=== PATIENT | female | born 1975 | race Caucasian/White ===

== ENCOUNTER → 2017-05-20 | Outpatient (CLI) | payer BC ==
--- NOTE | 2017-05-20 08:49 | US ---
EXAMINATION TYPE: US abdomen complete DATE OF EXAM: 05/20/2017 COMPARISON: NONE CLINICAL HISTORY: R10.11 Right Upper Quad Pain. Intermittent RUQ pain EXAM MEASUREMENTS: Liver Length: 18.2 cm Gallbladder Wall: 0.2 cm CBD: 0.3 cm Spleen: 9.3 cm Right Kidney: 13.9 x 4.1 x 5.4 cm Left Kidney: 12.8 x 5.8 x 3.8 cm Pancreas: limited evaluation due to overlying bowel content Liver: enlarged Gallbladder: no evidence of stones Evidence for sonographic Branham's sign: no CBD: appears wnl Spleen: wnl Right Kidney: enlarged, no evidence of hydronephrosis Left Kidney: upper limits of normal in size, no evidence of hydronephrosis Upper IVC: wnl Abd Aorta: wnl The liver is homogenous. The intrahepatic portion of the IVC and proximal abdominal aorta are within normal limits. There is no evidence of cholelithiasis. Common bile duct is unremarkable. The visu alized portions of the pancreas are homogenous. The spleen is unremarkable. Kidneys are symmetric a nd free of hydronephrosis. No renal lesions are seen. IMPRESSION: 1. Hepatomegaly. Otherwise unremarkable study.
== END | disposition home or self-care (01) ==
LOC: RADUSWWP 08:11
PROVIDERS: ATTEND Family Medicine
DX: R16.0 Hepatomegaly, not elsewhere classified (principal)
CPT/HCPCS: 76700